=== PATIENT | female | born 1960 | race Caucasian/White ===

== ENCOUNTER 2019-10-16 10:13 | Inpatient (IN) | payer BC, MEDICARE ==
[~2019-10-16] VITALS: Ht 167.6 cm; Wt 90.9 kg
[2019-10-17] MEDS ORDERED: AMITRIPTYLINE100 MG PO (09:37)
[2019-10-17] MEDS ORDERED: XANAX0.5 MG PO (09:43)
[2019-10-17] MEDS ORDERED: CRESTOR5 MG PO (09:44)
[2019-10-17] MEDS ORDERED: ULTRAM50 MG PO (09:44)
[2019-10-17] MEDS ORDERED: SYNTHROID50 MCG PO (09:45)
[2019-10-17] MEDS ORDERED: LOSARTAN-HCTZ1 EAC1 PO (09:46)
[2019-10-17] MEDS ORDERED: CELEBREX200 MG PO (09:46)
[2019-10-17] MEDS ORDERED: TOPROL XL100 MG PO (09:46)
[2019-10-17] MEDS ORDERED: AMABELZ 1 MG-01 EACH PO (09:47)
[2019-10-17] MEDS ORDERED: OMEGA-3100 MG PO (09:48)
[2019-10-17] MEDS ORDERED: vitamin D3 PO (09:48)
[2019-10-17] MEDS ORDERED: OMEPRAZOLE20 M1 PO (09:48)
[2019-10-17] MEDS ORDERED: SUPER B COMPLE1 EAC1 PO (09:49)
[2019-10-17] MEDS ORDERED: [UNRECOGNIZED DRUG - OTHER] PO (09:50)
[2019-10-17] MEDS ORDERED: GLUCOSAMINE HC500 MG PO (09:50)
[2019-10-17] MEDS ORDERED: BAYER CHEWABLE81 MG PO (09:50)
[2019-10-17] MEDS ORDERED: NORVASC5 MG PO (09:51)
[2019-10-17] MEDS ORDERED: ZYRTEC10 MG PO (09:51)
[2019-10-17] MEDS ORDERED: FLUTICASONE PRO16 GM NASAL (09:51)
[2019-10-17] MEDS ORDERED: CHONDROITIN PO (09:51)
[2019-10-17 09:52] LABS: BASOPHILS 0.4 % (0-2); EOSINOPHILS 1.4 % (0-7); HEMATOCRIT 38.1 % (36.0-48.0); HEMOGLOBIN 12.6 g/dL (12-16); IMMATURE GRANULOCYTES 0.5 % (0-5); LYMPHOCYTES 27.7 % (15-50); MCHC 33.1 g/dL (31.0-37.0); MCV 90.7 fL (80.0-100.0); MEAN PLATELET VOLUME 9.1 fL (7.4-10.4); PLATELET COUNT 320 10x3/uL (130-400); RDW 14.9 % (11.5-14.5); WBC 10.5 10x3/uL (4.8-10.8)
[2019-10-17 09:59] LABS: ANION GAP 9.1 mmol/L (8-16); CALCIUM 8.4 mg/dL (8.5-10.1); CARBON DIOXIDE 29.1 mmol/L (21.0-32.0); CREATININE - SERUM 0.9 mg/dL (0.6-1.3); POTASSIUM - SERUM 3.2 mmol/L (3.5-5.1)
[2019-10-17 10:02] LABS: INR 0.94 (0.85-1.17); PROTIME 12.6 SECONDS (11.6-15.0)
[2019-10-17 10:41] LABS: BACTERIA MODERATE /hpf (NEGATIVE); BILIRUBIN NEGATIVE (NEGATIVE); EPITHELIAL CELLS 0-5 /hpf (0-5); KETONE NEGATIVE (NEGATIVE); NITRITE NEGATIVE (NEGATIVE); RED CELLS - URINE RARE /hpf (0-5); UROBILINOGEN NORMAL (NORMAL); WHITE CELLS - URINE 0-5 /hpf (NEGATIVE)
[2019-10-23 12:44] VITALS: BP 146/79; BMI 32.3
--- NOTE | 2019-10-23 15:30 | NUR ---
CAUTERY PAD PLACED ON RIGHT BUTTOCK. LOT #[id number] EXP. [id number]. PLASMABLADE ON SETTING 6/8 AQUAMANTIS ON SETTING 170.
[2019-10-23 19:09] VITALS: BP 129/75
[2019-10-23 20:00] VITALS: BP 125/75
[2019-10-23] MEDS ORDERED: AMITRIPTYLINE H50 MG PO (22:00)
[2019-10-23] MEDS ORDERED: XANAX0.5 MG PO (22:01)
[2019-10-23] MEDS ORDERED: ULTRAM50 MG PO (22:04)
[2019-10-23] MEDS ORDERED: CRESTOR5 MG PO (22:05)
[2019-10-23] MEDS ORDERED: TIROSINT50 MCG PO (22:06)
[2019-10-23] MEDS ORDERED: METOPROLOL-HCT1 EACH PO (22:07)
[2019-10-23] MEDS ORDERED: LOSARTAN-HCTZ1 EAC1 PO (22:08)
[2019-10-23] MEDS ORDERED: CELEBREX200 MG PO (22:09)
[2019-10-23] MEDS ORDERED: AMABELZ 1 MG-01 EACH PO (22:10)
[2019-10-23] MEDS ORDERED: OMEGA-3100 MG PO (22:11)
[2019-10-23] MEDS ORDERED: OMEPRAZOLE20 M1 PO (22:11)
[2019-10-23] MEDS ORDERED: VITAMIN D3 (22:13)
[2019-10-23] MEDS ORDERED: CEREFOLIN TAB1 TAB PO (22:13)
[2019-10-23] MEDS ORDERED: [UNRECOGNIZED DRUG - OTHER] (22:14)
[2019-10-23] MEDS ORDERED: ASPIRIN81 MG PO (22:14)
[2019-10-23] MEDS ORDERED: GLUCOSAMINE HC500 MG PO (22:15)
[2019-10-23] MEDS ORDERED: NORVASC2.5 MG PO (22:16)
[2019-10-23] MEDS ORDERED: FLUTICASONE PRO16 GM NASAL (22:17)
[2019-10-23] MEDS ORDERED: CETIRIZINE HCL5 MG PO (22:17)
[2019-10-23 22:38] VITALS: BP 125/75; Ht 167.6 cm; Wt 90.9 kg
[2019-10-24] VITALS: BP 122/81
[2019-10-24 04:00] VITALS: BP 96/45
[2019-10-24 06:21] LABS: HEMATOCRIT 35.3 % (36.0-48.0); HEMOGLOBIN 11.5 g/dL (12-16); MCH 30.1 pg (26.0-34.0); MCHC 32.6 g/dL (31.0-37.0); MCV 92.4 fL (80.0-100.0); MEAN PLATELET VOLUME 9.5 fL (7.4-10.4); RBC 3.82 10x6/uL (4.00-5.40); RDW 14.6 % (11.5-14.5); WBC 11.4 10x3/uL (4.8-10.8)
--- NOTE | 2019-10-24 07:37 | NUR ---
ALERT AND ORENTED ABLE TO VOICE NEEDS AND WANTS TO STAFF. TOTAL LEFT HIP.DRESSING CLEAN DRY AND INTACT. PAIN CONTROLED WITH PRN PAIN MEDICATION,
--- NOTE | 2019-10-24 08:00 | OP ---
PATIENT NAME: SWETA VASQUEZ MEDICAL RECORD: [id number] :62 LOCATION:[facility] ADMISSION DATE:10/23/19 SURGEON: JATINDER RODRIGUEZ DO DATE OF OPERATION: 10/23/2019 PROCEDURE PERFORMED: Left total hip arthroplasty. PREOPERATIVE DIAGNOSIS: Left hip osteoarthritis. POSTOPERATIVE DIAGNOSIS: Left hip osteoarthritis. INDICATIONS: Ms. Vasquez is a 58-year-old female who has had left hip pain for quite some time. She has tried all manner of nonoperative treatment and was tired of dealing with the pain and wanted something done surgically. She was informed of the risks including infection, bleeding, damage to nerves and vessels in the area of the femoral nerve, the lateral cutaneous nerve of the thigh, fracture, and failure of implants. She did have a NICKEL ALLERGY, so we were using a different, not the dual mobility. She is at high risk for dislocation due to the fact we were not using dual mobility due to her NICKEL allergy, blood clots, and even and she signed the consent. SURGEON: Jatinder Rodriguez DO DESCRIPTION OF PROCEDURE: The patient was taken to the operative suite, laid in supine position, given a gram of vancomycin due to her positive MRSA, nasal swab, preoperatively. She was then sedated and intubated. She was given a gram of TXA as well. She was then moved over to the [place] table, which the left hip was then prepped and draped in sterile fashion. Timeout was performed. Everyone was in agreeance with the correct side, site, patient and procedure. We then began by making an incision over the tensor fascia gurjit muscle, albeit, a little more lateral than usual due to her body habitus. Careful dissection was made down to the tensor fascia gurjit. This was taken posteriorly. The fascia that was incised was taken superiorly over the rectus interval. This was then taken medially, the rectus and the tensor fascia gurjit laterally. Once I had got down to the femur, the capsule was opened and took an x-ray to ensure there is good position from the neck cut and the neck cut was made. I then removed the head, removed the labrum from the acetabulum and the pulvinar. I then began reaming with a 44 up to 48, 48 fit very well. I then impacted a 48 cup and tested it with a Simba to ensure that it was down and not mobile. It was the deep down. I then put in the liner and impacted into place and this had flushed with a cup. The femur was then exposed and I had cut a just a little more femur due to that being a long cut. I then used a canal finder and a cookie cutter to enter the canal and then broached with a 4 and then a 5, 5 fit very tightly. We then used a -6 neck and reduced it. It was a little bit long and the 5 was the shortest or the small stem we had. I then broached more at the 5 to get it to seat more and put a #5 stem implant and impacted into place and it sat down adequately. I then impacted the 32 Biolox ceramic head on -6 neck and reduced the hip then took x-rays. There is no fracture seen in the femur and the leg lengths were equal from the right and the left, on AP pelvis going off the lesser trochanters. I then irrigated the site with a 10% povidone iodine and 500 mL of normal saline solution, lasted for 3 minutes, irrigated that out with another liter of normal saline throughout the procedure. The ascending branch of the lateral femoral circumflex was encountered and coagulated with Aquamantys. After irrigating put in Herb and vancomycin and tobramycin powder in the wound and then closed the tensor fascia gurjit fascia OPERATIVE REPORT [id number] SWETA VASQUEZ with #1 Vicryl in a [id number] and then a running locking stitch. Ben Moseley, certified solid waste facility operator student, and Ambrocio Byrne, certified surgical certified medical technician assistant, and closed the wound with 2-0 Vicryl in inverted interrupted fashion and 4-0 Monocryl running on the skin and then Prineo glue on the skin. It was then dressed with Telfa, Tegaderm, awakened and taken to recovery in stable condition. Blood loss approximately 300 mL. COMPLICATIONS: None. TRANSINT:[id number] Voice Confirmation ID: [id number] DOCUMENT ID: [id number] JATINDER RODRIGUEZ DO at 0800 CC: [id number] DICTATION DATE: 10/23/19 1640 [place] FLOOR LAYER: 10/24/19 0226 ADM IN [place] [id number] [place], [place] [id number]
--- NOTE | 2019-10-24 08:51 | NUR ---
SHE IS ALERT, TALKING. HAS A DRESSING TO THE LEFT HIP AREA, SCANT AMOUNT OF DRAINAGE. THE CALL LIGHT IS WITHIN REACH.
[2019-10-24 09:55] VITALS: BP 114/67
[2019-10-24] MEDS ORDERED: ELIQUIS2.5 MG PO (12:08)
[2019-10-24] MEDS ORDERED: oxyCODONE IR PO (12:09)
[2019-10-24] MEDS ORDERED: VISTARIL50 MG PO (12:09)
[2019-10-24] MEDS ORDERED: KEFLEX500 MG PO (12:09)
[2019-10-24] MEDS ORDERED: ZOFRAN ODT4 MG/UDTAB PO (12:10)
[2019-10-24] MEDS ORDERED: MUPIROCIN22 GM TOPICAL (12:10)
--- NOTE | 2019-10-24 12:26 | MORECARE ---
CASE MANAGEMENT DISCHARGE SUMMARY PATIENT: SWETA VASQUEZ UNIT: [id number] ADM DATE: 10/23/19 AGE: 58 : 62 SEX: F ROOM/BED: D.2207 AUTHOR: IRINA SMITH PHYSICIAN: REFERRING PHYSICIAN: LATA RODRIGUEZ DO DATE OF SERVICE: 10/24/19 Discharge Plan Patient Name: SWETA VASQUEZ [facility] [facility] 1960 Planned Disposition: Home with Home Health Anticipated Discharge Date: Discharge Date: Expected LOS: Initial Reviewer: [email or web address] Initial Review Date: 10/23/2019 Generated: 10/24/19 1:26 pm DCPIA - Discharge Planning Initial Assessment Updated by [email or web address]: Brionna Duncan on 10/24/19 12:23 pm * Is the patient Alert and Oriented? Yes * How many steps to enter\exit or inside your home? * PCP EMANUEL ( [facility]) * [facility] * Preadmission Environment Home with Family * ADLs Independent * Equipment CPAP * List name and contact numbers for known caregivers / representatives who currently or will assist patient after discharge: MADIHA WATTS [phone] * Verbal permission to speak to the caregivers and representatives has been obtained from the patient. N/A * Community resources currently utilized None * Additional services required to return to the preadmission environment? Yes * Can the patient safely return to the preadmission environment? Yes * Has this patient been hospitalized within the prior 30 days at any hospital? No External Providers External Provider: [facility] Next Contact Date: Service Request Date: Service Type: Resolution: Reviewer: Comments: External Provider: [facility] Next Contact Date: Service Request Date: Service Type: Resolution: Reviewer: Comments: Patient Name: SWETA VASQUEZ Page [phone] at 1226 All edits/amendments must be made on the electronic document DICTATION DATE: 10/24/19 1226 SWINE GENETICS RESEARCHER: GORDON 10/24/19 1226 RPT#: [id number] DC DATE: STATUS: ADM IN [facility] [address] [place] [address] END OF REPORT
--- NOTE | 2019-10-24 12:33 | MORECARE ---
CASE MANAGEMENT DISCHARGE SUMMARY PATIENT: SWETA VASQUEZ UNIT: [id number] ADM DATE: 10/23/19 AGE: 58 : 62 SEX: F ROOM/BED: D.2207 AUTHOR: LUIS,DOC PHYSICIAN: REFERRING PHYSICIAN: LATA RODRIGUEZ DO DATE OF SERVICE: 10/24/19 Discharge Plan Patient Name: SWETA VASQUEZ Facility: [facility]:[place] : 1960 Planned Disposition: Home with Home Health Anticipated Discharge Date: Discharge Date: Expected LOS: Initial Reviewer: [email or web address] Initial Review Date: 10/23/2019 Generated: 10/24/19 1:33 pm Comments DCP- Discharge Planning Updated by [email or web address]: Brionna Duncan on 10/24/19 11:[address] Patient Name: SWETA VASQUEZ Admission Status: Urgent Accout number: [id number] Admission Date: 10-23-2019 : 1960 Admission Diagnosis: Attending: LATA RODRIGUEZ Current LOS: 1 Anticipated DC Date: Planned Disposition: Home with Home Health Primary Insurance: [employer] Discharge Planning Comments: CM met with patient to complete initial dc planning assessment. CM educated patient on the CM role and verbal consent given by patient to complete assessment. Patient lives at home with her spouse where she is independent with her care. At discharge patient plans to return home and feels this is a safe discharge. CM discussed availability of home health, rehab services, and medical equipment. She would like to have home health. [facility]. She has a cpap machine and will need a walker. Her walker was ordered from [employer] and they will deliver it to the hospital before she is discharged today. Her will drive her home. Patient denied known discharge needs at this time. CM will continue to follow and will assist as needed with dc plans/needs. Relay Man: Brionna Duncan DCPIA - Discharge Planning Initial Assessment Updated by [email or web address]: Brionna Duncan on 10/24/19 12:23 pm * Is the patient Alert and Oriented? Yes * How many steps to enter\exit or inside your home? * PCP [facility]UEL ( [facility]) * [facility] * Preadmission Environment Home with Family * ADLs Independent * Equipment CPAP * List name and contact numbers for known caregivers / representatives who currently or will assist patient after discharge: MADIHA WATTS [phone] * Verbal permission to speak to the caregivers and representatives has been obtained from the patient. N/A * Community resources currently utilized None * Additional services required to return to the preadmission environment? Yes * Can the patient safely return to the preadmission environment? Yes * Has this patient been hospitalized within the prior 30 days at any hospital? No Coverage Notice Reviewer: [email or web address] Christa Duncan Notice Issued Date-Time: 10/24/2019 12:00 Notice Type: Patient Choice Letter Notice Delivered To: Patient Relationship to Patient: Spare Person Name: Delivery Method: HAND - Hand Delivered Saira Days: Prior Verbal Notification: Recipient Understood Notice: Yes Recipient Signature: Yes Med Rec Note Co-signed by Attending: Coverage Notice Comment: care iv hh Last DP export: 10/24/19 11:26 a Patient Name: SWETA VASQUEZ Page [id number] at 1233 All edits/amendments must be made on the electronic document DICTATION DATE: 10/24/19 1233 MALLET CUTTER: GORDON 10/24/19 1233 RPT#: [id number] DC DATE: STATUS: ADM IN [facility] [address] [place] [address] END OF REPORT
[2019-10-24 13:46] VITALS: BP 120/67
--- NOTE | 2019-10-24 17:48 | NUR ---
IV REMOVED AND THE PAPERWORK HAS BEEN GONE OVER WITH, QUESTIONS ANSWERED. TAKEN TO THE FRONT DOOR VIA WHEELCHAIR. SHE HAS A WALKER.
--- NOTE | 2019-10-25 16:31 | MORECARE ---
CASE MANAGEMENT DISCHARGE SUMMARY PATIENT: SWETA VASQUEZ UNIT: [id number] ADM DATE: 10/23/19 AGE: 58 : 62 SEX: F ROOM/BED: D.2207 AUTHOR: IRINA SMITH PHYSICIAN: REFERRING PHYSICIAN: LATA RODRIGUEZ DO DATE OF SERVICE: 10/25/19 Discharge Plan Patient Name: SWETA VASQUEZ Facility: [facility]:[place] : 1960 Planned Disposition: Home with Home Health Anticipated Discharge Date: Discharge Date: 10/24/2019 Expected LOS: Initial Reviewer: [email or web address] Initial Review Date: 10/23/2019 Generated: 10/25/19 5:31 pm Comments DCP- Discharge Planning Updated by [email or web address]: Brionna Duncan on 10/24/19 11:[address] Patient Name: SWETA VASQUEZ Admission Status: Urgent Accout number: [id number] Admission Date: 10-23-2019 : 1960 Admission Diagnosis: Attending: LATA RODRIGUEZ Current LOS: 1 Anticipated DC Date: Planned Disposition: Home with Home Health Primary Insurance: [employer] Discharge Planning Comments: CM met with patient to complete initial dc planning assessment. CM educated patient on the CM role and verbal consent given by patient to complete assessment. Patient lives at home with her spouse where she is independent with her care. At discharge patient plans to return home and feels this is a safe discharge. CM discussed availability of home health, rehab services, and medical equipment. She would like to have home health. [facility]. She has a cpap machine and will need a walker. Her walker was ordered from [employer] and they will deliver it to the hospital before she is discharged today. Her will drive her home. Patient denied known discharge needs at this time. CM will continue to follow and will assist as needed with dc plans/needs. Security Sergeant: Brionna Duncan DCPIA - Discharge Planning Initial Assessment Updated by [email or web address]: Brionna Duncan on 10/24/19 12:23 pm * Is the patient Alert and Oriented? Yes * How many steps to enter\exit or inside your home? * PCP EMANUEL ( [facility]) * [facility] * Preadmission Environment Home with Family * ADLs Independent * Equipment CPAP * List name and contact numbers for known caregivers / representatives who currently or will assist patient after discharge: MADIHA WATTS [phone] * Verbal permission to speak to the caregivers and representatives has been obtained from the patient. N/A * Community resources currently utilized None * Additional services required to return to the preadmission environment? Yes * Can the patient safely return to the preadmission environment? Yes * Has this patient been hospitalized within the prior 30 days at any hospital? No Coverage Notice Reviewer: [email or web address] Christa Duncan Notice Issued Date-Time: 10/24/2019 12:00 Notice Type: Patient Choice Letter Notice Delivered To: Patient Relationship to Patient: Parts Sales Representative Name: Delivery Method: HAND - Hand Delivered Saira Days: Prior Verbal Notification: Recipient Understood Notice: Yes Recipient Signature: Yes Med Rec Note Co-signed by Attending: Coverage Notice Comment: care iv hh Last DP export: 10/24/19 11:33 a Patient Name: SWETA VASQUEZ Page [phone] at 1631 All edits/amendments must be made on the electronic document DICTATION DATE: 10/25/19 1631 FLEET ASSISTANT: GORDON 10/25/19 1631 RPT#: [id number] DC DATE:10/24/19 STATUS: DIS IN [facility] [address] [place] [address] END OF REPORT
== END 2019-10-24 17:49 | disposition home health service (06) | DRG 470 ==
LOC: D.SDCHOLD 10-17 10:00 → D.MS 10-23 11:30 → D.SDCHOLD 10-23 11:30 → D.M3 10-23 16:40 → D.SDCHOLD 10-23 17:00 → D.MS 10-23 18:03
PROVIDERS: ADMIT Orthopaedic Surgery; ATTEND Orthopaedic Surgery
PROC: 0SRB03A Replacement of Left Hip Joint with Ceramic Synthetic Substitute, Uncemented, Open Approach (ICD-10-PCS; principal; 2019-10-23 13:30)
DX: M16.12 Unilateral primary osteoarthritis, left hip (principal); I10 Essential (primary) hypertension; Z87.891 Personal history of nicotine dependence; B95.62 Methicillin resistant Staphylococcus aureus infection as the cause of diseases classified elsewhere

== ENCOUNTER → 2019-10-16 22:24 | Outpatient (CLI) | payer BC ==
[~2019-10-16 22:24] MED LIST: AMABELZ 1 MG-01 EACH PO; AMITRIPTYLINE100 MG PO; BAYER CHEWABLE81 MG PO; CELEBREX200 MG PO; CHONDROITIN PO; CRESTOR5 MG PO; FLUTICASONE PRO16 GM NASAL; GLUCOSAMINE HC500 MG PO; LOSARTAN-HCTZ1 EAC1 PO; NORVASC5 MG PO; OMEGA-3100 MG PO; OMEPRAZOLE20 M1 PO; SUPER B COMPLE1 EAC1 PO; SYNTHROID50 MCG PO; TOPROL XL100 MG PO; ULTRAM50 MG PO; XANAX0.5 MG PO; ZYRTEC10 MG PO; [UNRECOGNIZED DRUG - OTHER] PO; vitamin D3 PO
== END | disposition home or self-care (01) ==
LOC: D.LABREF 22:24
PROVIDERS: ATTEND Orthopaedic Surgery
DX: M16.12 Unilateral primary osteoarthritis, left hip (principal)